=== PATIENT | male | born 1995 | race Caucasian/White ===

== ENCOUNTER 2021-04-23 04:17 | Emergency (ER) | payer OTHER ==
[2021-04-23] MEDS ORDERED: ZOFRAN4 MG PO (05:13)
[2021-04-23] MEDS ORDERED: TORADOL 10 MG T10 MG PO (05:13)
== END 2021-04-23 06:05 | disposition home or self-care (01) ==
LOC: ER1 04:17
DX: U07.1 COVID-19 (principal); F17.210 Nicotine dependence, cigarettes, uncomplicated; Z88.2 Allergy status to sulfonamides; F84.0 Autistic disorder
CPT/HCPCS: 71045; 87081; 87880; 96372; 99284; J1885; U0002